=== PATIENT | female | born 1990 | race Caucasian/White ===

== ENCOUNTER 2024-11-03 10:09 | Emergency (ER) | payer SELFPAY ==
[~2024-11-03] VITALS: Ht 167.6 cm; Wt 91.0 kg
[2024-11-03 10:24] VITALS: O2SAT 98
[2024-11-03] MEDS ORDERED: KETOROLAC 30MG/ML VIAL IM ONE (11:00)
[2024-11-03] MEDS ORDERED: LIDO700A15 TP (12:09)
[2024-11-03] MEDS ORDERED: METH-653 MT (12:09)
[2024-11-03] MEDS ORDERED: TOPUD PO (12:09)
[2024-11-03] MEDS ORDERED: IBUP-2028 MT (12:09)
[2024-11-03 13:24] VITALS: BP 131/91
[2024-11-03] MEDS: METHOCARBAMOL 750MG TABLET PO SCH (13:24)
[2024-11-03] MEDS: LIDOCAINE 5% PATCH TOP SCH (13:24)
[2024-11-03] MEDS: KETOROLAC 30MG/ML VIAL IM NR (13:24)
[2024-11-03 13:25] VITALS: PULSE 76; RESP 18; TEMP 36.94740; O2SAT 99
== END 2024-11-03 13:25 | disposition home or self-care (01) ==
LOC: ER 10:09 → EDBD 10:09 → ER 13:25
DX: S13.4XXA Sprain of ligaments of cervical spine, initial encounter (principal); S39.012A Strain of muscle, fascia and tendon of lower back, initial encounter; E66.9 Obesity, unspecified; V43.52XA Car driver injured in collision with other type car in traffic accident, initial encounter; Y92.410 Unspecified street and highway as the place of occurrence of the external cause; Y92.89 Other specified places as the place of occurrence of the external cause; Y99.8 Other external cause status
CPT/HCPCS: 99284; 81025; 72100; 72170; 96372; J1885

== ENCOUNTER 2024-11-11 12:26 | Inpatient (IN) | payer SELFPAY ==
[~2024-11-11] VITALS: Ht 170.2 cm; Wt 111.1 kg
[~2024-11-11 12:26] MED LIST: IBUP-2028 MT; LIDO700A15 TP; METH-653 MT; TOPUD PO
[2024-11-11 12:36] VITALS: O2SAT 97
[2024-11-11 13:09] LABS: BASOPHILS % 0.4 % (0.0-2.0); EOSINOPHILS % 1.4 % (0.0-5.0); HEMATOCRIT. 40.5 % (36.0-48.0); HEMOGLOBIN. 13.4 g/dL (12.0-16.0); LYMPHOCYTES % 29.6 % (20.0-50.0); MEAN CORPUSCULAR HEMOGLOBIN 28.7 pg (28.0-32.0); MEAN CORPUSCULAR VOLUME 86.8 fL (81.0-99.0); MEAN PLATELET VOLUME 7.8 fl (7.4-10.4); MONOCYTES % 7.6 % (2.0-8.0); PLATELET 326 x1000/uL (130-400); RED BLOOD CELL COUNT 4.67 mill/uL (4.2-5.4); RED CELL DISTRIBUTION WIDTH 13.3 % (11.6-14.6); WHITE BLOOD COUNT 11.3 x1000/uL (4.5-11.0)
[2024-11-11 13:13] LABS: CHLORIDE 106 mEq/L (98-107); POTASSIUM 4.2 mEq/L (3.5-5.1); SODIUM 140 mEq/L (136-145)
[2024-11-11 13:16] LABS: CARBON DIOXIDE 25 mEq/L (21-32)
[2024-11-11 13:17] LABS: CALCIUM 9.3 mg/dL (8.7-10.4)
[2024-11-11 13:21] LABS: CREATININE 0.7 mg/dL (0.6-1.0)
[2024-11-11 13:22] LABS: GLUCOSE 86 mg/dL (70-105); UREA NITROGEN BLOOD 9 mg/dL (9-23)
[2024-11-11 13:23] LABS: ALANINE AMINOTRANSFERASE 10 IU/L (10-49); ALBUMIN 4.1 g/dL (3.2-4.8); ASPARTATE AMINOTRANSFERASE 14 IU/L (<34)
[2024-11-11 13:24] LABS: BILIRUBIN DIRECT 0.2 mg/dL (<=3.0); BILIRUBIN TOTAL 0.6 mg/dL (0.1-1.0); PROTEIN TOTAL 7.1 g/dL (6.0-8.3)
[2024-11-11 13:33] LABS: HCG SCREEN NEGATIVE
[2024-11-11] MEDS ORDERED: MORPHINE SULFATE 4 MG/ML INJ (FOR IV/IM USE) IV STA (14:25)
[2024-11-11] MEDS ORDERED: ONDANSETRON HCL 4MG/2ML INJ IV STA (14:25)
[2024-11-11] MEDS ORDERED: MORPHINE SULFATE 4 MG/ML INJ (FOR IV/IM USE) IV NR (19:45)
[2024-11-11] MEDS: ONDANSETRON HCL 4MG/2ML INJ IV NR (19:46)
[2024-11-11] MEDS: MORPHINE SULFATE 4 MG/ML INJ (FOR IV/IM USE) IV NR (19:47)
[2024-11-11] MEDS: SODIUM CHLORIDE 0.9% 1,000 ML IV ONE (19:47)
[2024-11-11] MEDS: ACETAMINOPHEN 1000MG/100ML 100 ML IV ONE (23:07)
[2024-11-12] VITALS: BP 110/80; PULSE 77; RESP 19; TEMP 36.5848; TEMP 36.61404; O2SAT 94
[2024-11-12] MEDS ORDERED: ONDANSETRON HCL 4MG/2ML INJ IV PRN (00:30)
[2024-11-12] MEDS ORDERED: MAGNESIUM/ALUMINUM HYDROXIDE/SIMETHICONE 30ML UDC PO PRN (00:30)
[2024-11-12] MEDS ORDERED: ACETAMINOPHEN 325MG TABLET PO PRN (00:30)
[2024-11-12] MEDS ORDERED: GUAIFENESIN 200MG/10ML SUGAR FREE UDC PO PRN (00:30)
[2024-11-12] MEDS ORDERED: IPRATROPIUM/ALBUTEROL 0.5-3(2.5)MG/3ML NEB HHN PRN (00:30)
[2024-11-12] MEDS ORDERED: HYDRALAZINE 20MG/ML VIAL IV PRN (00:30)
[2024-11-12] MEDS ORDERED: MELATONIN 3MG TABLET PO PRN (00:30)
[2024-11-12] MEDS ORDERED: DOCUSATE SODIUM 100MG CAPSULE PO PRN (00:30)
[2024-11-12] MEDS ORDERED: KETOROLAC 30MG/ML VIAL IV PRN (01:00)
[2024-11-12] MEDS ORDERED: HYDRALAZINE 10 MG in SODIUM CHLORIDE 0.9% 49.5 ML IV PRN (02:00)
[2024-11-12 04:00] VITALS: BP 105/69; PULSE 68; RESP 19; TEMP 36.89184; O2SAT 94
[2024-11-12] MEDS: PANTOPRAZOLE 40MG DR TABLET PO SCH (06:59)
[2024-11-12 08:00] VITALS: BP 104/60; PULSE 82; RESP 18; TEMP 36.3918; O2SAT 96
[2024-11-12] MEDS: BUPROPION HCL 75MG TABLET PO SCH (09:31)
[2024-11-12 12:00] VITALS: BP 98/63; PULSE 83; RESP 20; TEMP 36.55848; O2SAT 100
[2024-11-12 12:27] LABS: CLARITY URINE CLEAR (CLEAR); COLOR URINE YELLOW (YELLOW); GLUCOSE URINE NEGATIVE (NEGATIVE); KETONES URINE 1+ (NEGATIVE); LEUKOCYTE ESTERASE URINE NEGATIVE (NEGATIVE); NITRITE URINE NEGATIVE (NEGATIVE); OCCULT BLOOD URINE NEGATIVE (NEGATIVE); PROTEIN URINE NEGATIVE (NEGATIVE); UROBILINOGEN URINE 0.2 E.U./dL (0.2-1.0)
[2024-11-12 12:45] LABS: *AMPHETAMINES SCREEN URINE NEGATIVE (NEGATIVE); *BARBITURATES SCREEN URINE NEGATIVE (NEGATIVE); *BENZODIAZEPINES SCREEN URINE NEGATIVE (NEGATIVE); *COCAINE SCREEN URINE NEGATIVE (NEGATIVE); CANNABINOID URINE SCREEN NEGATIVE (NEGATIVE); ECSTASY MDMA SCREEN URINE NEGATIVE (NEGATIVE); METHADONE URINE SCREEN NEGATIVE (NEGATIVE); OPIATES URINE SCREEN PRESUMPTIVE POSITIVE (NEGATIVE); PHENCYCLIDINE URINE SCREEN NEGATIVE (NEGATIVE)
[2024-11-12 16:00] VITALS: BP 108/76; PULSE 96; RESP 21; TEMP 36.3918; TEMP 36.39180; O2SAT 99
== END 2024-11-12 20:20 | disposition left against medical advice (07) | DRG 249 ==
LOC: ER 12:31 → 6WST 11-12 00:11
PROVIDERS: ADMIT Hospitalist; ATTEND Hospitalist
DX: K52.9 Noninfective gastroenteritis and colitis, unspecified (principal); R16.0 Hepatomegaly, not elsewhere classified; Z53.29 Procedure and treatment not carried out because of patient's decision for other reasons; E66.9 Obesity, unspecified; F32.9 Major depressive disorder, single episode, unspecified; F41.1 Generalized anxiety disorder; R10.30 Lower abdominal pain, unspecified; D72.829 Elevated white blood cell count, unspecified; Z68.38 Body mass index [BMI] 38.0-38.9, adult; Z90.49 Acquired absence of other specified parts of digestive tract
CPT/HCPCS: 36415; 74176; 80048; 80076; 80305; 80320; 81003; 83036; 84145; 84703; 85025; 85651; 86200; 93005; J2270; J2405; J7030; G0480; J0131